=== PATIENT | male | born 1970 | race African-American/Black ===

== ENCOUNTER 2017-08-27 22:44 | Inpatient (IN) | payer BC ==
[~2017-08-27] VITALS: Ht 185.4 cm; Wt 98.9 kg
[2017-08-27 22:44] VITALS: BP_SYST 163
[2017-08-27] MEDS ORDERED: ATEN-41 PO (22:58)
[2017-08-27] MEDS ORDERED: LOSA100T11 PO (22:58)
[2017-08-27 23:45] LABS: BASOPHILS # (AUTO) 0.1 K/uL (0.0-0.2); BASOPHILS % (AUTO) 0.7 % (0.0-2.0); EOSINOPHILS # (AUTO) 0.2 K/uL (0.0-0.4); HEMATOCRIT 43.8 % (36-54); HEMOGLOBIN 14.3 g/dL (14.0-18.0); LYMPHOCYTES # (AUTO) 2.8 K/uL (1.0-5.5); LYMPHOCYTES % (AUTO) 36.7 % (20.5-51.5); MEAN CORPUSCULAR HEMOGLOBIN 29 pg (27-31); MEAN CORPUSCULAR HGB CONC 33 % (32-36); MEAN CORPUSCULAR VOLUME 89 fL (79.0-98.0); MONOCYTES # (AUTO) 0.7 K/uL (0.0-1.0); MONOCYTES % (AUTO) 9.7 % (1.7-9.3); NEUTROPHILS # (AUTO) 3.8 K/uL (1.8-7.7); NEUTROPHILS % (AUTO) 50.9 % (40.0-70.0); PLATELET COUNT (AUTO) 157 K/uL (130-430); RED BLOOD CELL COUNT(AUTO) 4.91 MIL/uL (4.2-6.2); RED CELL DISTRIBUTION WIDTH 12.2 % (9.0-15.0); WHITE BLOOD COUNT (AUTO) 7.6 K/uL (4.8-10.8)
[2017-08-27 23:52] LABS: CALCIUM 8.9 mg/dL (8.4-11.0); CREATININE 1.01 mg/dL (0.55-1.30); POTASSIUM 3.5 mmol/L (3.5-5.1)
[2017-08-28 00:01] LABS: ALBUMIN 3.6 g/dL (3.4-4.8); TOTAL BILIRUBIN 0.5 mg/dL (0.0-1.0)
[2017-08-28] MEDS ORDERED: NITROGLYCERIN 0.4 MG TAB.SUBL SL PRN (01:15)
[2017-08-28 01:30] VITALS: BP_SYST 154
[2017-08-28 05:14] VITALS: BP_SYST 134
[2017-08-28 08:00] VITALS: BP_SYST 132
[2017-08-28] MEDS: ATENOLOL 25 MG TABLET(TENORMIN) PO SCH ×2 (08:37→17:56)
[2017-08-28 08:49] LABS: CHOLESTEROL 218 mg/dL (<200); HDL CHOLESTEROL 49 mg/dL (>45); LDL CHOLESTEROL 151 mg/dL (<100); TRIGLYCERIDES 67 mg/dL (30-150)
[2017-08-28] MEDS ORDERED: LOSARTAN POTASSIUM 50 MG TABLET (COZAAR) PO SCH (09:00)
[2017-08-28] MEDS ORDERED: ASPIRIN 81 MG TAB.CHEW PO SCH (09:00)
[2017-08-28 10:30] LABS: BILIRUBIN,URINE NEGATIVE (NEGATIVE); BLOOD, URINE NEGATIVE (NEGATIVE); CLARITY/URINE CLEAR (CLEAR); COLOR,URINE YELLOW (YELLOW); GLUCOSE,URINE NEGATIVE (NEGATIVE); KETONES,URINE NEGATIVE (NEGATIVE); LEUKOCYTE ESTERASE ,URINE TRACE (NEGATIVE); NITRITE, URINE NEGATIVE (NEGATIVE); PROTEIN URINE NEGATIVE (NEGATIVE); UROBILINOGEN,URINE 0.2 (0.2-1.0)
[2017-08-28 10:38] LABS: BACTERIA,URINE FEW /HPF (None Seen); RBC,URINE 0-3 /HPF (0-3)
[2017-08-28 10:39] LABS: MUCUS,URINE 1+ /LPF (None Seen)
[2017-08-28 10:40] LABS: BARBITURATE, URINE NEGATIVE (NEG <=200); BENZODIAZEPINE, URINE NEGATIVE (NEG <=150); CANNABINOID, URINE NEGATIVE (NEG <=50); COCAINE, URINE NEGATIVE (NEG <=150); METHAMPHETAMINES SCREEN,URINE NEGATIVE (NEG <=500); URINE AMPHETAMINE NEGATIVE (NEG <=500); URINE METHADONE NEGATIVE (NEG <=200)
[2017-08-28 10:41] LABS: OPIATE, URINE NEGATIVE (NEG <=100); PHENCYCLIDINE SCREEN,URINE NEGATIVE (NEG <=25); UR TRICYCLIC ANTIDEPRESSANTS NEGATIVE (NEG <=300); URINE OXYCODONE SCREEN NEGATIVE (NEG <=100); URINE PROPOXYPHENE SCREEN NEGATIVE (NEG <=300)
[2017-08-28 11:46] VITALS: BP_SYST 135
[2017-08-28 15:42] LABS: PROTHROMBIN TIME 10.1 SECS (9.5-12.5)
[2017-08-28 16:11] VITALS: BP_SYST 142
[2017-08-28] MEDS ORDERED: ASPI-1063 PO (18:01)
[2017-08-28 18:03] VITALS: BP_SYST 140
== END 2017-08-28 18:52 | disposition home or self-care (01) | DRG 313 ==
LOC: SED 22:44 → STU 08-28 01:02
PROVIDERS: ADMIT Internal Medicine; ATTEND Internal Medicine
DX: R07.89 Other chest pain (principal); E78.5 Hyperlipidemia, unspecified; I10 Essential (primary) hypertension; Z79.899 Other long term (current) drug therapy; Z82.49 Family history of ischemic heart disease and other diseases of the circulatory system; Z87.891 Personal history of nicotine dependence; Z72.89 Other problems related to lifestyle; Z84.1 Family history of disorders of kidney and ureter
CPT/HCPCS: 36415; 71010; 80053; 80061; 80307; 81000-TC; 83690-TC; 83880; 84484; 85025; 85379; 85610-TC; 85730-TC; 87086; 93005; 93306; 99285